=== PATIENT | male | born 1945 | race Caucasian/White ===

== ENCOUNTER 2017-04-13 13:39 | Emergency (ER) | payer MEDICARE, BC | END 2017-04-13 15:40 | disposition home or self-care (01) | LOC: D.ER 13:39 | DX: S61.213A Laceration without foreign body of left middle finger without damage to nail, initial encounter (principal); W26.0XXA Contact with knife, initial encounter; Y93.89 Activity, other specified; Y92.814 Boat as the place of occurrence of the external cause ==